=== PATIENT | female | born 1945 | race Two or more races ===

== ENCOUNTER 2025-06-06 07:30 | Day surgery (SDC) | payer OTHER ==
[2025-05-30 10:19] VITALS: BP 128/76
[2025-05-30 10:28] LABS: URINE APPEARANCE Cloudy; URINE BILIRRUBIN Negative (NEGATIVE); URINE BLOOD Large; URINE COLOR Yellow; URINE GLUCOSE Negative (NEGATIVE); URINE KETONE Negative (NEGATIVE); URINE LEUKOCYTE Large; URINE NITRATE Negative; URINE PROTEIN Trace (NEGATIVE); URINE UROBILINOGEN 0.2 E.U./dl
[2025-05-30 10:32] LABS: BASO % 0.4 % (0.1-1.2); EOS # 0.13 (0.04-0.54); EOS % 1.9 % (0.7-7.0); LYMPH # 0.73 (1.18-3.74); LYMPH % 10.5 % (19.3-53.1); MEAN PLATELET VOLUME 11.30 fl (9.4-12.4); MONO # 0.57 (0.24-0.82); MONO % 8.2 % (4.7-12.5); NEUT # 5.49 (1.56-6.13); NEUT % 78.7 % (34.0-71.1); RED CELL DISTRIBUTION WIDTH 14.3 % (11.6-14.4)
[2025-05-30 10:33] LABS: URINE BACTERIA 3680.3 uL (0.0-1933); URINE EPITHELIAL CELLS 42.1 uL (0.0-38.8); URINE RBC 270.4 uL (0.0-20.8); URINE WBC 295.6 uL (0.0-23.2)
[2025-05-30 10:50] LABS: URINE CAST 0.73 uL (0.0-1.40)
[2025-05-30 10:51] LABS: URINE CRYSTALS FEW /HPF
[2025-05-30 10:55] LABS: INR 1.01
[2025-05-30 11:06] LABS: COVID-19 AG NEGATIVE (NEGATIVE)
[2025-05-30 11:15] LABS: ALT/SGPT 24.0 U/L (12-78); AST/SGOT 21.0 U/L (15-37); BILIRUBIN TOTAL 0.66 mg/dL (0.3-1.2); BUN CREA RATIO 35.0 (7.0-25.0); CREATININE SERUM 0.37 mg/dL (0.55-1.02); GFR 167.61; GLOBULINA 3.1 G/DL (2.4-3.5); GLUCOSE FASTING 94.0 mg/dL (65-100); OSMOLALITY SERUM 287.0 MOSM/KG (275-295)
[~2025-06-06] VITALS: Ht 147.3 cm; Wt 52.6 kg
[~2025-06-06 07:30] MED LIST: ALLEGRA-D 24 H1 EACH PO; ASA-BUTALB-CAF1 EACH PO; BENADRYL25 MG PO; GORDON'S VITE A75 GM; NAPR500T14 PO; ORTHO DF 3,7751 EACH PO; PROTONIX40 MG PO; RELAFEN DS1000 MG; VISTARIL50 MG/ML IM
[2025-06-06] MEDS ORDERED: KETOROLAC TROMETHAMINE 15 MG VIAL IV STA (11:49)
[2025-06-06] MEDS ORDERED: METRONIDAZOLE/SODIUM CHLORIDE 500 MG/100 ML PIGGYBACK IV ONE (12:00)
[2025-06-06] MEDS ORDERED: CEFAZOLIN SODIUM 1,000 MG VIAL IV ONE (12:00)
[2025-06-06] MEDS ORDERED: CHLORHEXIDINE GLUCONATE 120 ML BOTTLE TOP ONE (12:00)
[2025-06-06] MEDS ORDERED: KETOROLAC TROMETHAMINE 30 MG VIAL ONE (12:41)
[2025-06-06] MEDS ORDERED: KETOROLAC TROMETHAMINE 30 MG VIAL IV ONE (12:50)
== END 2025-06-06 17:55 | disposition home or self-care (01) ==
LOC: CIR.AMB 07:30
PROVIDERS: ATTEND Obstetrics & Gynecology Gynecologic Oncology
DX: D07.1 Carcinoma in situ of vulva (principal); Z91.013 Allergy to seafood